=== PATIENT | female | born 1980 | race Two or more races ===

== ENCOUNTER 2018-08-26 15:48 | Emergency (ER) | payer MEDICAID ==
[~2018-08-26] VITALS: Ht 165.1 cm; Wt 81.6 kg
[2018-08-26] MEDS ORDERED: TIZANIDINE HCL4 M2 ORAL (16:11)
[2018-08-26] MEDS ORDERED: CELEBREX200 MG ORAL (16:11)
[2018-08-26] MEDS ORDERED: LYRICA200 MG ORAL (16:11)
[2018-08-26] MEDS ORDERED: SAVELLA100 MG PO (16:11)
[2018-08-26] MEDS ORDERED: TRAMADOL HCL100 M2 ORAL (16:11)
[2018-08-26] MEDS ORDERED: Morphine Sulfate 4mg/ml Inj (IV USE ONLY) IVP ONE ×2 (16:15→19:15)
[2018-08-26 16:30] VITALS: BP 143/95
--- NOTE | 2018-08-26 16:32 | NUR ---
ED Nurse Note:pt. came from home with chronic lower back pain exacerbation, she is ambulatory with cane, placed on playground monitor will have MRI done, blood and urine sent to labs
[2018-08-26] MEDS ORDERED: Gadavist 7.5mMol/7.5ml vial IV PRN (16:45)
[2018-08-26 16:46] LABS: BASOPHILS % (AUTO) 1.5 % (0.0-2.0); EOSINOPHILS % (AUTO) 1.6 % (0.0-3.0); HEMATOCRIT 38.4 % (37.0-47.0); HEMOGLOBIN 13.6 G/DL (12.0-16.0); LYMPHOCYTES % (AUTO) 30.8 % (20.0-45.0); MEAN CORPUSCULAR VOLUME 88 FL (80-99); MONOCYTES % (AUTO) 5.3 % (1.0-10.0); NEUTROPHILS % (AUTO) 60.8 % (45.0-75.0); PLATELET COUNT 256 K/UL (150-450); RED BLOOD COUNT 4.39 M/UL (4.20-5.40); RED CELL DISTRIBUTION WIDTH 11.2 % (11.6-14.8); WHITE BLOOD COUNT 4.9 K/UL (4.8-10.8)
[2018-08-26 16:48] LABS: APPEARANCE,URINE CLEAR; BILIRUBIN, URINE NEGATIVE (NEGATIVE); COLOR,URINE PALE YELLOW; GLUCOSE, URINE (UA) NEGATIVE (NEGATIVE); KETONES,URINE NEGATIVE (NEGATIVE); LEUKOCYTE ESTERASE ,URINE NEGATIVE (NEGATIVE); NITRITE,URINE NEGATIVE (NEGATIVE); PH,URINE 6.5 (4.5-8.0); PROTEIN,URINE NEGATIVE (NEGATIVE); UROBILINOGEN,URINE NORMAL MG/DL (0.0-1.0)
[2018-08-26 17:04] LABS: ANION GAP 9 mmol/L (5-15); BLOOD UREA NITROGEN 8 mg/dL (7-18); CALCIUM 9.5 MG/DL (8.5-10.1); CARBON DIOXIDE 28 MMOL/L (21-32); CHLORIDE 103 MMOL/L (98-107); CREATININE 0.8 MG/DL (0.55-1.30); POTASSIUM 4.2 MMOL/L (3.5-5.1); SODIUM 140 MMOL/L (136-145)
[2018-08-26 17:08] LABS: ALANINE AMINOTRANSFERASE 21 U/L (12-78); ALBUMIN 3.9 G/DL (3.4-5.0); ALKALINE PHOSPHATASE 66 U/L (46-116); ASPARTATE AMINO TRANSFERASE 24 U/L (15-37); BILIRUBIN,TOTAL 0.4 MG/DL (0.2-1.0)
[2018-08-26] MEDS ORDERED: LORazepam Inj 2mg/ml 1ml IV ONE (17:15)
--- NOTE | 2018-08-26 17:15 | NUR ---
ED Nurse Note:pt. was taken to MRI
--- NOTE | 2018-08-26 18:39 | Emergency Room Report ---
History of Present Illness General Chief Complaint: Pain Source: Patient Present Illness HPI 38-year-old female presents ED for evaluation. In complaining of back pain. States that she has had multiple surgeries to her lower back including laminectomy and fusion. Last surgery was 4 years ago at [facility]. States she has been having persistent pain since. States she last saw PMD about 1 year ago and then she traveled [place]. States she was being managed with pain medications but not well. Pain is sharp, 9 out of 10, nonradiating. Denies bowel or bladder incontinence. It is difficult to walk but she can walk with a cane. No other aggravating or relieving factors. Denies any other associated symptoms Allergies: Coded Allergies: No Known Allergies (Unverified , 08/26/18) Patient History Past Medical History: none Past Surgical History: other - laminectomy, fusion Pertinent Family History: none Social History: Denies: smoking, alcohol use, drug use Now: No Immunizations: UTD Reviewed Nursing Documentation: PMH: Agreed; PSxH: Agreed Review of Systems All Other Systems: negative except mentioned in HPI Physical Exam Vital Signs Date Time Temp Pulse Resp B/P (MAP) Pulse Ox O2 Delivery O2 Flow Rate FiO2 08/26/18 16:00 98.6 90 8 155/97 (116) 100 Room Air Sp02 EP Interpretation: reviewed, normal General Appearance: alert, GCS 15, non-toxic, mild distress Head: normocephalic, atraumatic Eyes: bilateral eye normal inspection, bilateral eye PERRL ENT: hearing grossly normal, normal pharynx, no angioedema, normal voice Neck: full range of motion, supple/symm/no masses Respiratory: chest non-tender, lungs clear, normal breath sounds, speaking full sentences Cardiovascular #1: regular rate, rhythm, no edema Cardiovascular #2: 2+ carotid (R), 2+ carotid (L), 2+ radial (R), 2+ radial (L) , 2+ dorsalis pedis (R), 2+ dorsalis pedis (L) Gastrointestinal: normal bowel sounds, non tender, soft, non-distended, no guarding, no rebound Rectal: deferred Genitourinary: normal inspection, no CVA tenderness, vertebral tenderness Musculoskeletal: back normal, gait/station normal, normal range of motion Neurologic: alert, oriented x3, responsive, motor strength/tone normal, sensory intact, speech normal Psychiatric: judgement/insight normal, memory normal, mood/affect normal, no suicidal/homicidal ideation Reflexes: 3+ bicep (R), 3+ bicep (L), 3+ tricep (R), 3+ tricep (L), 3+ knee (R) , 3+ knee (L) Skin: normal color, no rash, warm/dry, well hydrated Lymphatic: no adenopathy Medical Decision Making Diagnostic Impression: Primary Impression: Protrusion of intervertebral disc of lumbosacral region Additional Impression: Back pain Qualified Codes: M54.5 - Low back pain; G89.29 - Other chronic pain ER Course Hospital Course 38-year-old female presents to ED with back pain, h/o prior back surgery Differential diagnoses include: lumbar fx, sciatica, epidural abscess Clinical course Patient placed on stretcher. site monitor. After initial history and physical I ordered labs, pain medication and MRI of T spine and L spine Labs - no leukocytosis, Hb/Hct stable. electrolytes ok. UA negative MRI T-spine negative MRI L-spine shows disc protrusion at L2-L3. Prior fusion at L4 L5-S1. No other acute process Reassessment pain is improved. No focal neurological deficits. Discussed findings with patient. Will discharge to home. Given copy of MRI reports. Will provide for a short course of pain medication. Will provide referrals for orthopedics and primary as patient just [place]. I feel this is a highly complex case requiring extensive working including EKG/ Rhythm strip, Xray/CT/US, Blood/urine lab work, repeat exams while in ED, and administration of strong opiates/narcotics for pain control, admission to hospital or close patient follow up. Diagnosis - protrusion of intervertebral disk of lumbosacral region, back pain Discharge to home with prescriptions for [place], Lidoderm. Follow-up with PMD/ Ortho. Return to ED if symptoms recur or worsen Labs Test 08/26/18 16:20 White Blood Count 4.9 K/UL (4.8-10.8) Red Blood Count 4.39 M/UL (4.20-5.40) Hemoglobin 13.6 G/DL (12.0-16.0) Hematocrit 38.4 % (37.0-47.0) Mean Corpuscular Volume 88 FL (80-99) Mean Corpuscular Hemoglobin 30.9 PG (27.0-31.0) Mean Corpuscular Hemoglobin Concent 35.3 G/DL (32.0-36.0) Red Cell Distribution Width 11.2 % (11.6-14.8) Platelet Count 256 K/UL (150-450) Mean Platelet Volume 6.4 FL (6.5-10.1) Neutrophils (%) (Auto) 60.8 % (45.0-75.0) Lymphocytes (%) (Auto) 30.8 % (20.0-45.0) Monocytes (%) (Auto) 5.3 % (1.0-10.0) Eosinophils (%) (Auto) 1.6 % (0.0-3.0) Basophils (%) (Auto) 1.5 % (0.0-2.0) Urine Color Pale yellow Urine Appearance Clear Urine pH 6.5 (4.5-8.0) Urine Specific [place] 1.010 (1.005-1.035) Urine Protein Negative (NEGATIVE) Urine Glucose (UA) Negative (NEGATIVE) Urine Ketones Negative (NEGATIVE) Urine Blood Negative (NEGATIVE) Urine Nitrite Negative (NEGATIVE) Urine Bilirubin Negative (NEGATIVE) Urine Urobilinogen Normal MG/DL (0.0-1.0) Urine Leukocyte Esterase Negative (NEGATIVE) Urine RBC 0 /HPF (0 - 2) Urine WBC 0 /HPF (0 - 2) Urine Squamous Epithelial Cells Few /LPF (NONE/OCC) Urine Bacteria None /HPF (NONE) Urine HCG, Qualitative Negative (NEGATIVE) Sodium Level 140 MMOL/L (136-145) Potassium Level 4.2 MMOL/L (3.5-5.1) Chloride Level 103 MMOL/L (98-107) Carbon Dioxide Level 28 MMOL/L (21-32) Anion Gap 9 mmol/L (5-15) Blood Urea Nitrogen 8 mg/dL (7-18) Creatinine 0.8 MG/DL (0.55-1.30) Estimat Glomerular Filtration Rate > 60 mL/min (>60) Glucose Level 90 MG/DL (74-106) Calcium Level 9.5 MG/DL (8.5-10.1) Total Bilirubin 0.4 MG/DL (0.2-1.0) Aspartate Amino Transf (AST/SGOT) 24 U/L (15-37) Alanine Aminotransferase (ALT/SGPT) 21 U/L (12-78) Alkaline Phosphatase 66 U/L (46-116) Total Protein 7.9 G/DL (6.4-8.2) Albumin 3.9 G/DL (3.4-5.0) Globulin 4.0 g/dL Albumin/Globulin Ratio 1.0 (1.0-2.7) CT/MRI/US Diagnostic Results CT/MRI/US Diagnostic Results #1: Imaging Test Ordered: MRI T spine Impression no acute process CT/MRI/US Diagnostic Results #2: Imaging Test Ordered: MRI L spine Impression Postoperative changes with fusion of L4-5 S1. There is a central disc herniation at L2-3 that causes canal effacement with 6 mm residual canal diameter. Additionally this causes severe effacing the lateral recess on the right greater than the left potential for impingement on descending nerve roots cannot be totally excluded No significant neural foramina effacement. Postcontrast imaging demonstrates no abnormal enhancement in the cauda equina or vertebral bodies. There is no abnormal enhancement disc spaces. Impression canal effacement at L2-3 a central disc herniation with 6 mm residual canal diameter lateral recess effacement right greater than left but no significant neural foraminal effacement. Postoperative changes consistent with fusion lower lumbar spine with no abnormal enhancement postcontrast imaging Last Vital Signs Date Time Temp Pulse Resp B/P (MAP) Pulse Ox O2 Delivery O2 Flow Rate FiO2 08/26/18 17:57 98.6 08/26/18 16:30 76 12 143/95 100 Room Air Status: improved Disposition: HOME, SELF-CARE Condition: Stable Scripts Hydrocodone Bit/Acetaminophen 5-325* (NORCO 5-325*) 1 Each Tablet 1 TAB ORAL Q6H PRN for For Pain, #12 TAB 0 Refills Prov: Cem Schneider MD 08/26/18 Lidocaine (Lidoderm) 1 Each Adh..patch 1 PATCH TOPIC DAILY, #7 PATCH 0 Refills Patch(es) may remain in place for up to 12 hours in any 24-hour period. Prov: Cem Schneider MD 08/26/18 Cem Schneider MD Aug 26, 2018 18:39
--- NOTE | 2018-08-26 19:05 | NUR ---
ED Nurse Note:pt. is back from MRI
--- NOTE | 2018-08-26 19:10 | NUR ---
HAND-OFF: Report given to norman.
[2018-08-26 19:17] VITALS: BP 137/73
[2018-08-26] MEDS ORDERED: LIDODERM700 M1 TOPIC (20:25)
[2018-08-26] MEDS ORDERED: NORCO 5-325 TA1 EACH ORAL (20:25)
[2018-08-26] MEDS ORDERED: Ketorolac 30mg Inj IV ONE (20:45)
--- NOTE | 2018-08-26 21:03 | NUR ---
ER DISCHARGE NOTE: Patient is cleared to be discharged per ERMD, pt is aox4, on room air, with stable vital signs. pt was given dc and prescription instructions, pt was able to verbalize understanding, pt id band and iv site removed without complications. pt is able to ambulate with steady gait. pt took all belongings.
[2018-08-26 21:04] VITALS: BP 135/72
--- NOTE | 2018-08-27 10:57 | Diagnostic Imaging Report ---
Indication: History of lumbar laminectomy presenting with lower extremity weakness and pain Technique: MRI examination of the Lumbar spine was performed in a 1.5 Marielena magnet. Sequences obtained include sagittal and axial T1 and T2 fast spin echo, and sagittal STIR. Pre/Post gadolinium axial and sagittal T1 FSE w/ fat saturation obtained. Comparison: none Findings: L4-S1 laminectomy has been performed. There is a large laminectomy defect noted. The spinal canal is capacious at this level. There is interbody fusion at L4-5 and at L5-S1. Susceptibility artifact from hardware consisting of bilateral pedicle screws and fusion rods noted. This obscures visualization of the foramina but there is no obvious foraminal stenosis and there is no evidence of central stenosis. At L2-3 there is of prominent posterior disc herniation present. This compresses the central canal and introduced canal nerve roots. There is some narrowing of the lateral recess. There is no foraminal stenosis. The disc is narrowed. Hypertrophied facets noted at this level. L3-4 shows disc desiccation and narrowing. There is facet arthropathy at this level. T12-L1 and L1-2 are unremarkable. The spinal cord and the visualized part of the distal or lower thoracic spine appears normal. There is no abnormal enhancement of the cord or nerve roots. There is no abnormal disc enhancement. Cauda equina is unremarkable. Bone marrow signal is normal. IMPRESSION: Central posterior disc herniation at L2-3 resulting in stenosis of the central canal and compression of the intracanicular nerve roots. Status post fusion and laminectomy L4-S1. L2 level degenerative disc disease and facet arthropathy as described above
--- NOTE | 2018-08-27 11:46 | Diagnostic Imaging Report ---
Indication: Back pain Technique: MRI examination of the thoracic spine was performed in a 1.5 Marielena magnet. Sequences obtained include sagittal and axial T1 and T2 fast spin echo, and sagittal STIR. Pre/Post gadolinium axial and sagittal T1 FSE w/ fat saturation obtained. Comparison: none Findings: The spinal cord is normal in appearance. There is no abnormal enhancement of this cord or nerve roots. Alignment is normal. Bone marrow signal and configuration and signal of the intervertebral discs are normal. No epidural, paraspinous or paravertebral mass or fluid collections are identified. IMPRESSION: Negative MRI of the thoracic spine. [facility] has communicated the preliminary results to the Emergency Department. Their findings are largely concordant with this report.
== END 2018-08-26 21:06 | disposition home or self-care (01) ==
LOC: EMR 16:32
DX: M54.5 Low back pain (principal); M51.27 Other intervertebral disc displacement, lumbosacral region; G89.29 Other chronic pain; Z98.1 Arthrodesis status
CPT/HCPCS: 36415; 72147; 72149; 80053; 81001; 81025; 85025; 96374; 96375; 96376; 99284; A9585; J1885; J2270